=== PATIENT | male | born 1970 | race Caucasian/White ===

== ENCOUNTER 2019-08-28 09:02 | Emergency (ER) | payer OTHER ==
[2019-08-28] MEDS ORDERED: LIDOCAINE 5% TOPICAL PATCH TP ONE (09:08)
[2019-08-28] MEDS ORDERED: ACETAMINOPHEN 325 MG TABLET (FP) PO ONE (09:08)
[2019-08-28 09:14] VITALS: BP 143/84; PULSE 74; TEMP 97.9; BMI 29.2
--- NOTE | 2019-08-28 09:14 | PDOC ---
History of Present Illness - General Chief Complaint: Pain Stated Complaint: LEFT RIB PAIN Time Seen by Provider: 08/28/19 09:07 History Source: Patient Exam Limitations: No Limitations - History of Present Illness Initial Comments: 08/28/19 09:09 49-year-old healthy male presenting with left anterior chest wall pain since yesterday. He was playing with his child and was reaching out when he felt a pulling sensation in his left chest wall, fell to the ground. Since then he has been having reproducible sharp anterior chest pain that radiates across to the back, worse with coughing, deep breathing, movement and twisting motion. 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 he endorses left sided anterior chest pain 3-4/10 when not moving, up to 8/10 when he moves/bends over. no ASA or AC use no medical problems no surgical procedures no smoking drugs or alcohol use 08/28/19 09:53 Past History - Past Medical History Allergies/Adverse Reactions: Allergies Allergy/AdvReac Type Severity Reaction Status Date / Time No Known Allergies Allergy Verified 08/28/19 09:05 Home Medications: Ambulatory Orders Cyclobenzaprine HCl [Flexeril 10 mg] 10 mg PO TID PRN #12 tablet 08/28/19 Ibuprofen 800 mg PO PRN PRN 08/28/19 Lidocaine 5% Patch [Lidoderm Patch -] 1 patch TP DAILY PRN #7 patch 08/28/19 Review of Systems - Review of Systems Able to Perform ROS?: Yes Comments:: 08/28/19 09:12 Review of systems Constitutional: no fevers or chills. No weakness HEENT: no headache or dizziness. CVS: no syncope. +chest pain. Resp: no sob. No cough. Gastrointestinal: no abdominal pain, nausea, vomiting, diarrhea. MUSCULOSKELETAL: No joint pain and swelling. No neck or back pain. +chest wall pain. SKIN: no redness or skin changes, no discharge, no rash. No wounds. Hematologic: no easy bruising/bleeding. NEUROLOGIC: No headache, dizziness, LOC or altered mental status. No weakness, numbness or tingling. Allergic/Immunologic: no allergies All other systems reviewed and negative, or as documented in HPI. *Physical Exam - Physical Exam Comments: 08/28/19 09:13 Physical exam General: Well appearing, awake and alert, NAD. HEENT: NCAT, PERRL, EOMI, clear conjunctiva, anicteric, moist mucus membranes, clear oropharynx, no oral lesions.. Neck: neck supple, FROM Resp: CTAB, normal and even respirations, no respiratory distress CVS: RRR, no murmurs, 2+ peripheral pulses throughout, no peripheral edema Chest wall: point tenderness to left anterior chest wall under nipple, no crepitus. no skin discoloration. Abdomen: soft, NTND, no rebound or guarding. Back: nontender, normal inspection and ROM MSK: no edema, DUTTON x4, ROM intact. No clubbing or cyanosis. normal bulk and tone. Extremities: no calf tenderness Neuro: alert, oriented appropriately; no focal neurologic deficits Psych: Calm and cooperative Skin: warm and well perfused, cap refill <2 sec, normal color, no rash or skin discoloration. ED Treatment Course - RADIOLOGY Radiology Studies Ordered: Category Date Time Status CHEST PA & LAT [RAD] Stat Radiology 08/28/19 09:08 Ordered RIBS-LEFT SIDE [RAD] Stat Radiology 08/28/19 09:08 Ordered Medical Decision Making - Medical Decision Making 08/28/19 09:53 Vital Signs Temp Pulse Resp BP Pulse Ox 97.9 F 74 20 143/84 100 08/28/19 09:04 08/28/19 09:04 08/28/19 09:04 08/28/19 09:04 08/28/19 09:04 Vital signs reviewed within normal limits. Patient is well-appearing, breathing comfortably speaking full sentences. No respiratory distress. Differential diagnosis includes costochondritis, chest wall contusion, rib fracture, pneumothorax. unlikely cardiac or ACS, PE or dissection as pt with reproducible chest wall tenderness and mechanism of injury to suggest so. no rash to suggest zoster. Chest x-ray with rib series appears clear without acute fracture effusion edema or evidence of pneumothorax, normal cardiac silhouette, trachea is midline bones intact. Official read confirmed by radiologist. Patient was given analgesia here including Tylenol, Lidoderm patch with much relief. Patient instructed that this is most likely costochondritis and chest wall contusion from strain injury pattern. Told regimen, proper rest and limit physical activity, expectant management over the next 3 to 5 days, breathing exercises to minimize respiratory failure/pneumonia/atelectasis. Patient verbalized understanding of impression and plan, discharge with analgesia regimen, supportive care and adequate rest, return precautions provided. Discharge - Discharge Information Problems reviewed: Yes Clinical Impression/Diagnosis: Costochondritis Condition: Improved Disposition: HOME - Admission No - Additional Discharge Information Prescriptions: Cyclobenzaprine HCl [Flexeril 10 mg] 10 mg PO TID PRN #12 tablet PRN Reason: Muscle Spasms Lidocaine 5% Patch [Lidoderm Patch -] 1 patch TP DAILY PRN #7 patch PRN Reason: Pain - Follow up/Referral Referrals: [facility] [Provider Group] [facility] [Provider Group] - Patient Discharge Instructions Patient Printed Discharge Instructions: DI for Costochondritis Additional Instructions: You most likely have musculoskeletal strain/involving your chest wall muscles Avoid heavy lifting or strenuous activity to minimize further injury remember to perform deep breathing exercises to maintain good lung function and prevent pneumonia/respiratory failure. This should heal over the next 3-5 days. RICE rest ice elevate the affected area Rest, Ice (20 minutes at a time, 3 times a day), Compression (AKIRA wrap or splint ), Elevation (above the heart). Apply ice to the area for 10 minutes every 2 hours for the first 2 days after the injury to reduce swelling. continue with range of motion exercises, as this will facilitate the healing process; avoid being bed bound and immobile. If you have any worsening of symptoms, including severe pain/swelling/redness/ numbness/changes in sensation/weakness/paralysis or any other concerns please return to the Emergency Department immediately. You were given a copy of the results from any tests performed today in the Emergency Department which have results available. Show these to your doctor(s). Some of the tests we sent may not have results yet so please call or have your doctor call the Emergency Department to follow up on all results. Please continue taking your home medications as directed. Do not use alcohol when taking any medication ( especially antibiotics, tylenol or other pain medication) unless you check with the doctor or pharmacist. -flexeril is a muscle relaxant, take three times a day as needed may cause sleepiness, do not drive or operate machinery or take with alcohol. -topical lidoderm patch to the area affected, 12 hours on and 12 hours off.. -May take ibuprofen 400-600mg and/or tylenol 650 to 975 mg every 6 hours as needed for mild to moderate pain, available over the counter. This does not require narcotics, as it will precipitate injuries and falls. Please follow up with your primary doctor(s) within the next 1 week, but seek medical care sooner if your symptoms persist or worsen. Please call as soon as possible for an appointment. If you cannot follow up with your doctor please return to the Emergency Department for any urgent issues. Follow up with your primary care physician in 1 week if symptoms persist, or with orthopedics specialists if needed, referrals have been provided. - Post Discharge Activity
[2019-08-28] MEDS ORDERED: ACETAMINOPHEN 325 MG TABLET (FP) ONE (09:32)
[2019-08-28] MEDS ORDERED: LIDOCAINE 5% TOPICAL PATCH ONE (09:32)
[2019-08-28] MEDS ORDERED: LIDOCAINE PATCH REMOVAL MC SCH (22:00)
== END 2019-08-28 10:03 | disposition home or self-care (01) ==
LOC: FER 09:02
DX: R07.9 Chest pain, unspecified (principal)
CPT/HCPCS: 71101-TC-LT-FY; 99282-25